=== PATIENT | female | born 1970 | race American Indian/Alaskan Native ===

== ENCOUNTER 2020-10-24 15:39 | Emergency (ER) | payer OTHER ==
[2020-10-24 15:52] VITALS: BP 115/68
[2020-10-24] MEDS ORDERED: NEOMY 3.5 MG/BACIT 400 UNITS/POLY B 5000 UNITS/GM OINT PACKET TP ONE (16:08)
[2020-10-24] MEDS ORDERED: IBUPROFEN 600 MG TAB PO ONE (16:08)
[2020-10-24] MEDS ORDERED: DIPHtheria,PERTUSSIS(ACELL),TETANUS VACCINE/PF 0.5 ML VIAL IM ONE (16:08)
--- NOTE | 2020-10-24 16:27 | Emergency Department Report ---
ED Fall HPI - General Chief Complaint: Fall Stated Complaint: FALL INJURY/PAIN Time Seen by Provider: 10/24/20 16:00 Source: patient Mode of arrival: Ambulatory - History of Present Illness Initial Comments: Patient is a 49-year-old female presents emergency room after a fall that occurred just prior to arrival. Patient states that she tripped over a crate which caused her to fall. She is complaining of right knee pain, left big toe pain, lower back pain, left thigh pain, she also has abrasions to her right knee. She denies ever injuring the past. She denies any loss of consciousness, neck pain, vision changes, vomiting, numbness, weakness, bowel or bladder incontinence, any other injury. She is unsure of her last tetanus immunization. Past medical history of hypertension. No allergies to medications. She is postmenopausal. - Related Data Previous Rx's Medication Instructions Recorded Last Taken Type Cephalexin [Keflex] 500 mg PO TID #21 capsule 01/04/14 Unknown Rx Ferrous Sulfate [Feosol 325 MG tab] 325 mg PO TID #90 tablet 05/22/14 Unknown Rx Cyclobenzaprine HCl [Flexeril 5mg] 5 mg PO TID PRN #15 tablet 02/10/15 Unknown Rx HYDROcodone/APAP 5-325 [[place] 1 each PO Q6HR PRN #20 tablet 04/29/15 Unknown Rx 5-325 mg TAB] amLODIPine 5 mg PO DAILY #30 tab 02/10/16 Unknown Rx Naproxen [Naprosyn TAB] 500 mg PO BID PRN #20 tablet 10/24/20 Unknown Rx Allergies Allergy/AdvReac Type Severity Reaction Status Date / Time No Known Allergies Allergy Verified 02/10/16 18:36 ED Review of Systems ROS: Stated complaint: FALL INJURY/PAIN Other details as noted in HPI Comment: All other systems reviewed and negative ED Past Medical Hx - Past Medical History Previous Medical History?: Yes Hx Hypertension: Yes - Surgical History Past Surgical History?: Yes Additional Surgical History: 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 - Social History Smoking Status: Never Smoker Substance Use Type: Alcohol - Medications Home Medications: Home Medications Medication Instructions Recorded Confirmed Last Taken Type Cephalexin [Keflex] 500 mg PO TID #21 capsule 01/04/14 Unknown Rx Ferrous Sulfate [Feosol 325 MG tab] 325 mg PO TID #90 tablet 05/22/14 Unknown Rx Cyclobenzaprine HCl [Flexeril 5mg] 5 mg PO TID PRN #15 tablet 02/10/15 Unknown Rx HYDROcodone/APAP 5-325 [[place] 1 each PO Q6HR PRN #20 tablet 04/29/15 Unknown Rx 5-325 mg TAB] amLODIPine 5 mg PO DAILY #30 tab 02/10/16 Unknown Rx Naproxen [Naprosyn TAB] 500 mg PO BID PRN #20 tablet 10/24/20 Unknown Rx ED Physical Exam - General Limitations: No Limitations General appearance: alert, in no apparent distress - Head Head exam: Present: atraumatic, normocephalic - Eye Eye exam: Present: normal appearance - ENT ENT exam: Present: mucous membranes moist - Neck Neck exam: Present: normal inspection, full ROM. Absent: tenderness - Respiratory Respiratory exam: Present: normal lung sounds bilaterally. Absent: respiratory distress, wheezes, rales, rhonchi, stridor, chest wall tenderness, accessory muscle use, decreased breath sounds, prolonged expiratory - Cardiovascular Cardiovascular Exam: Present: regular rate, normal rhythm, normal heart sounds. Absent: systolic murmur, diastolic murmur, rubs, gallop - Extremities Exam Extremities exam: Present: other (ttp to the right anterior knee, there are two small 1 cm abrasions to the right knee region, FROM of the RLE, no deformity, mild ttp to the left big toe, ttp to the left lateral thigh with ecchymosis present, no deformities, FROM of the LLE, neurovascularly intact) - Back Exam Back exam: Present: normal inspection, full ROM, paraspinal tenderness (bilateral lumbar paraspinal muscular ttp, no midline C-spine, T-spine or L- spine ttp, no step offs, no deformities). Absent: vertebral tenderness - Neurological Exam Neurological exam: Present: alert, oriented X3, CN II-XII intact, normal gait. Absent: motor sensory deficit - Psychiatric Psychiatric exam: Present: normal affect, normal mood - Skin Skin exam: Present: warm, dry ED Course Vital Signs 10/24/20 10/24/20 10/24/20 15:48 17:33 17:46 Temperature 98.2 F Pulse Rate 69 Respiratory 18 18 20 Rate Blood Pressure 115/68 O2 Sat by Pulse 98 Oximetry ED Medical Decision Making - Radiology Data Radiology results: report reviewed Ordering Physician: WALESKA RIVERA Date of Service: 10/24/20 Procedure(s): XR toe(s) 2+V LT Accession Number(s): [id number] cc: WALESKA RIVERA Fluoro Time In Minutes: LEFT TOE(S) 3 VIEW(S) INDICATION / CLINICAL INFORMATION: fall, left big toe pain COMPARISON: None available. FINDINGS: BONES / JOINT(S): No acute fracture or subluxation. 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 SOFT TISSUES: No significant abnormality. ADDITIONAL FINDINGS: None. Signer Name: Daisy Rosario MD Signed: 10/24/2020 4:52 PM Workstation Name: [id number] Transcribed By: Dictated By: DAISY ROSARIO Electronically Authenticated By: DAISY ROSARIO Signed Date/Time: 10/24/201651 DD/ 50 TD/TT: Ordering Physician: WALESKA RIVERA Date of Service: 10/24/20 Procedure(s): XR knee 3V RT Accession Number(s): [id number] cc: WALESKA RIVERA Fluoro Time In Minutes: RIGHT KNEE 3 VIEW(S) INDICATION / CLINICAL INFORMATION: fall, right knee pain COMPARISON: None available. FINDINGS: BONES / JOINT(S): No acute fracture or subluxation. There is superior patellar enthesopathy. SOFT TISSUES: No significant abnormality. ADDITIONAL FINDINGS: None. Signer Name: Daisy Rosario MD Signed: 10/24/2020 4:53 PM Workstation Name: [id number] Transcribed By: Dictated By: DAISY ROSARIO Electronically Authenticated By: DAISY ROSARIO Signed Date/Time: 10/24/201652 DD/ 52 TD/TT: Ordering Physician: WALESKA RIVERA Date of Service: 10/24/20 Procedure(s): XR femur 2+V LT Accession Number(s): [id number] cc: WALESKA RIVERA Fluoro Time In Minutes: LEFT FEMUR 4 VIEW(S) INDICATION / CLINICAL INFORMATION: fall, left thigh pain COMPARISON: None available. FINDINGS: BONES / JOINT(S): No acute fracture or subluxation. No significant arthritis. SOFT TISSUES: No significant abnormality. ADDITIONAL FINDINGS: None. Signer Name: Daisy Rosario MD Signed: 10/24/2020 4:54 PM Workstation Name: [id number] Transcribed By: SS Dictated By: DAISY ROSARIO Electronically Authenticated By: DAISY ROSARIO Signed Date/Time: 10/24/201653 DD/ 52 TD/TT: Ordering Physician: WALESKA RIVERA Date of Service: 10/24/20 Procedure(s): XR spine lumbosacral 2-3V Accession Number(s): [id number] cc: WALESKA RIVERA Fluoro Time In Minutes: LUMBAR SPINE 3 VIEWS INDICATION / CLINICAL INFORMATION: fall, lower back pain. COMPARISON: None available. FINDINGS: VERTEBRAE: No acute fracture. No significant malalignment. DISC SPACES / FACET JOINTS:Mild multilevel degenerative spondylosis. PARASPINAL SOFT TISSUES:No significant abnormality. ADDITIONAL FINDINGS: None. Signer Name: Daisy Rosario MD Signed: 10/24/2020 4:52 PM Workstation Name: [id number] Transcribed By: Dictated By: DAISY ROSARIO Electronically Authenticated By: DAISY ROSARIO Signed Date/Time: 10/24/201651 DD/ 51 TD/TT: - Medical Decision Making Patient is a 49-year-old female presents emergency room after a fall that occurred just prior to arrival. Patient states that she tripped over a crate which caused her to fall. She is complaining of right knee pain, left big toe pain, lower back pain, left thigh pain, she also has abrasions to her right knee. She denies ever injuring the past. She denies any loss of consciousness, neck pain, vision changes, vomiting, numbness, weakness, bowel or bladder incontinence, any other injury. She is unsure of her last tetanus immunization. Past medical history of hypertension. No allergies to medications. She is postmenopausal. Vitals are normal. On exam: ttp to the right anterior knee, there are two small 1 cm abrasions to the right knee region, FROM of the RLE, no deformity, mild ttp to the left big toe, ttp to the left lateral thigh with ecchymosis present, no deformities, FROM of the LLE, neurovascularly intact, bilateral lumbar paraspinal muscular ttp, no midline C-spine, T-spine or L-spine ttp, no step offs, no deformities, no focal neuro deficits. All x-rays are within normal limits. Discussed all results with patient answered questions. Wound care performed by nurse. Patient given ibuprofen and Tdap while in the emergency department. Patient given prescription for naproxen. Advised patient Please take medication as prescribed. Please keep area on the knee clean, dry, covered, wash with antibacterial soap and water twice a day and pat dry, use tr iple antibiotic or Neosporin ointment. May use ice for 15 minutes at a time, rest, elevation of the legs. Follow-up with your primary care doctor for reexamination. Return to emergency room for new or symptoms. - Differential Diagnosis Strain, sprain, fracture, dislocation, contusion, abrasion Critical care attestation.: If time is entered above; I have spent that time in minutes in the direct care of this critically ill patient, excluding procedure time. ED Disposition Clinical Impression: Toe pain, left, Left thigh pain, Abrasion, right knee, initial encounter Fall Qualifiers: Encounter type: initial encounter Qualified Code(s): W19.XXXA - Unspecified fall, initial encounter Right knee pain Qualifiers: Chronicity: acute Qualified Code(s): M25.561 - Pain in right knee Lumbar strain Qualifiers: Encounter type: initial encounter Qualified Code(s): S39.012A - Strain of muscle, fascia and tendon of lower back, initial encounter Disposition: TO HOME OR SELFCARE Is pt being admited?: No Does the pt Need Aspirin: No Condition: Stable Instructions: Abrasion, Musculoskeletal Pain Additional Instructions: Please take medication as prescribed. Please keep area on the knee clean, dry, covered, wash with antibacterial soap and water twice a day and pat dry, use triple antibiotic or Neosporin ointment. May use ice for 15 minutes at a time, rest, elevation of the legs. Follow-up with your primary care doctor for reexamination. Return to emergency room for new or symptoms. Prescriptions: Naproxen [Naprosyn TAB] 500 mg PO BID PRN #20 tablet PRN Reason: Pain Referrals: [facility] [Other] - 2-3 Days Forms: Work/School Release Form(ED) Time of Disposition: 17:09 Print Language: LATVIAN
--- NOTE | 2020-10-24 16:56 | XRay Report ---
LEFT TOE(S) 3 VIEW(S) INDICATION / CLINICAL INFORMATION: fall, left big toe pain COMPARISON: None available. FINDINGS: BONES / JOINT(S): No acute fracture or subluxation. 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 SOFT TISSUES: No significant abnormality. ADDITIONAL FINDINGS: None. Signer Name: Walter Rosario MD Signed: 10/24/2020 4:52 PM Workstation Name: [id number]
--- NOTE | 2020-10-24 16:57 | XRay Report ---
LUMBAR SPINE 3 VIEWS INDICATION / CLINICAL INFORMATION: fall, lower back pain. COMPARISON: None available. FINDINGS: VERTEBRAE: No acute fracture. No significant malalignment. DISC SPACES / FACET JOINTS:Mild multilevel degenerative spondylosis. PARASPINAL SOFT TISSUES:No significant abnormality. ADDITIONAL FINDINGS: None. Signer Name: Walter Rosario MD Signed: 10/24/2020 4:52 PM Workstation Name: [id number]
--- NOTE | 2020-10-24 16:58 | XRay Report ---
LEFT FEMUR 4 VIEW(S) INDICATION / CLINICAL INFORMATION: fall, left thigh pain COMPARISON: None available. FINDINGS: BONES / JOINT(S): No acute fracture or subluxation. No significant arthritis. SOFT TISSUES: No significant abnormality. ADDITIONAL FINDINGS: None. Signer Name: Walter Rosario MD Signed: 10/24/2020 4:54 PM Workstation Name: [id number]
--- NOTE | 2020-10-24 16:58 | XRay Report ---
RIGHT KNEE 3 VIEW(S) INDICATION / CLINICAL INFORMATION: fall, right knee pain COMPARISON: None available. FINDINGS: BONES / JOINT(S): No acute fracture or subluxation. There is superior patellar enthesopathy. SOFT TISSUES: No significant abnormality. ADDITIONAL FINDINGS: None. Signer Name: Walter Rosario MD Signed: 10/24/2020 4:53 PM Workstation Name: [email or web address]
== END 2020-10-24 17:46 | disposition home or self-care (01) ==
LOC: ED 15:39
DX: S80.211A Abrasion, right knee, initial encounter (principal); M79.675 Pain in left toe(s); S39.012A Strain of muscle, fascia and tendon of lower back, initial encounter; I10 Essential (primary) hypertension; Z79.899 Other long term (current) drug therapy; W01.0XXA Fall on same level from slipping, tripping and stumbling without subsequent striking against object, initial encounter; Y93.89 Activity, other specified; Y92.89 Other specified places as the place of occurrence of the external cause; Y99.8 Other external cause status
CPT/HCPCS: 72100; 73552; 73562; 73660; 90471; 90715; 99283; A6250

== ENCOUNTER 2021-05-08 11:42 | Emergency (ER) | payer OTHER ==
[2021-05-08 11:54] VITALS: BP 119/79
== END 2021-05-08 15:40 | disposition home or self-care (01) ==
LOC: ED 11:42
DX: S39.012A Strain of muscle, fascia and tendon of lower back, initial encounter (principal); S50.00XA Contusion of unspecified elbow, initial encounter; S70.00XA Contusion of unspecified hip, initial encounter; S06.9X9A Unspecified intracranial injury with loss of consciousness of unspecified duration, initial encounter; I10 Essential (primary) hypertension; Z79.899 Other long term (current) drug therapy; Z98.890 Other specified postprocedural states; V49.49XA Driver injured in collision with other motor vehicles in traffic accident, initial encounter; Y92.410 Unspecified street and highway as the place of occurrence of the external cause; Y93.89 Activity, other specified; Y99.8 Other external cause status
CPT/HCPCS: 70450; 72100; 72125

== ENCOUNTER 2022-03-03 21:20 | Emergency (ER) | payer OTHER ==
[2022-03-03] MEDS ORDERED: oxyCODONE /ACETAMINOPHEN 5-325MG TAB PO ONE (21:36)
--- NOTE | 2022-03-03 21:37 | Emergency Department Report ---
<YENNIFER LEE - Last Filed: 03/04/22 05:59> ED General Adult HPI - General Chief complaint: Animal Bite Stated complaint: BITE BY SNAKE PUI?: No Time Seen by Provider: 03/03/22 21:32 Source: patient, RN notes reviewed Mode of arrival: Ambulatory Limitations: No Limitations - History of Present Illness Initial comments: The patient was evaluated in the emergency department for symptoms described in the history of present illness. He/she was evaluated in the context of the global COVID-19 pandemic, which necessitated consideration that the patient might be at risk for infection with the virus that causes COVID-19. Institutional protocols and algorithms that pertain to the evaluation of patie nts at risk for COVID-19 are in a state of rapid change based on information released by regulatory bodies including the CDC and federal and state organizations. These policies and algorithms were followed during the patient's care in the emergency department. Please note that these policies, procedures and recommendations changed on a rapid basis. This is a 51-year-old female who states that she is not , with a past medical history of hypertension, who presents to the emergency room today with a complaint of snake bite to the medial dorsal aspect of her right foot, which happened approximately 10 to 15 minutes prior to ER arrival. She believes that it was a small or perhaps baby snake, with brown and white markings. She denies additional injuries and complaints. No redness, pus, streaking, weakness, numbness or bleeding. Prior to the reported bite, the patient reports that she is in her usual state of health. Reports only one bite, and no additional injuries. No additional complaints -: Sudden, minutes(s) Location: right, lower extremity Quality: aching Consistency: constant Improves with: rest Worsens with: movement Associated Symptoms: denies other symptoms - Related Data Previous Rx's Medication Instructions Recorded Last Taken Type Ferrous Sulfate [Feosol 325 MG tab] 325 mg PO TID #90 tablet 05/22/14 Unknown Rx amLODIPine 5 mg PO DAILY #30 tab 02/10/16 Unknown Rx Acetaminophen [Acetaminophen 8 650 mg PO Q8HR #30 tablet.er 05/08/21 Unknown Rx Hour] Acetaminophen [Non-Aspirin Extra 500 mg PO Q6HR PRN #30 tablet 03/04/22 Unknown Rx Strength] Morphine Sulfate [Morphine Sulfate 7.5 mg PO Q6HR PRN #12 tablet 03/04/22 Unknown Rx IR] cephALEXin [Keflex] 500 mg PO Q6HR #28 capsule 03/04/22 Unknown Rx Allergies Allergy/AdvReac Type Severity Reaction Status Date / Time No Known Allergies Allergy Verified 02/10/16 18:36 ED Review of Systems Comment: All other systems reviewed and negative Musculoskeletal: myalgia ED Past Medical Hx - Past Medical History Hx Hypertension: Yes - Surgical History Additional Surgical History: 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 - Social History Smoking Status: Never Smoker Substance Use Type: Alcohol - Medications Home Medications: Home Medications Medication Instructions Recorded Confirmed Last Taken Type Ferrous Sulfate [Feosol 325 MG tab] 325 mg PO TID #90 tablet 05/22/14 Unknown Rx amLODIPine 5 mg PO DAILY #30 tab 02/10/16 Unknown Rx Acetaminophen [Acetaminophen 8 650 mg PO Q8HR #30 tablet.er 05/08/21 Unknown Rx Hour] Acetaminophen [Non-Aspirin Extra 500 mg PO Q6HR PRN #30 tablet 03/04/22 Unknown Rx Strength] Morphine Sulfate [Morphine Sulfate 7.5 mg PO Q6HR PRN #12 tablet 03/04/22 Unknown Rx IR] cephALEXin [Keflex] 500 mg PO Q6HR #28 capsule 03/04/22 Unknown Rx ED Physical Exam - General Limitations: No Limitations General appearance: alert, in no apparent distress - Head Head exam: Present: atraumatic, normocephalic - Eye Eye exam: Present: normal appearance, EOMI. Absent: nystagmus - ENT ENT exam: Present: normal exam, normal orophraynx, mucous membranes moist, normal external ear exam - Neck Neck exam: Present: normal inspection, full ROM. Absent: tenderness, meningismus - Respiratory Respiratory exam: Present: normal lung sounds bilaterally. Absent: respiratory distress, wheezes, rales, rhonchi, stridor, decreased breath sounds - Cardiovascular Cardiovascular Exam: Present: regular rate, normal rhythm, normal heart sounds. Absent: bradycardia, tachycardia, irregular rhythm, systolic murmur, diastolic murmur, rubs, gallop - GI/Abdominal GI/Abdominal exam: Present: soft. Absent: distended, tenderness, guarding, rebound, rigid, pulsatile mass - Extremities Exam Extremities exam: Present: full ROM, tenderness (Point tenderness noted to be bite site on the right foot.), other (2+ pulses noted in the bilateral upper and lower extremities. There is no palpable cord. negative Homans sign. Muscular compartments are soft. The pelvis is stable.). Absent: normal inspection (There is minimal circumferential swelling approximately 2 cm x 2 cm on the dorsal medial aspect of the right foot. There is no pus, streaking, ecchymosis. The muscular compartments are soft. No foreign bodies are noted), pedal edema, calf tenderness - Back Exam Back exam: Present: normal inspection, full ROM. Absent: paraspinal tenderness, vertebral tenderness - Neurological Exam Neurological exam: Present: alert, oriented X3, other (No facial droop. Tongue midline. Extraocular movements intact bilaterally. Facial sensation intact to light touch in V1, V2, V3 distribution bilaterally. 5 and a 5 strength in 4 extremities. Sensation intact to light touch in 4 extremities.). Absent: motor sensory deficit - Psychiatric Psychiatric exam: Present: anxious - Skin Skin exam: Present: warm, dry, intact, normal color. Absent: rash ED Course - Reevaluation(s) Reevaluation #1: 03/03/22 22:13 Differential diagnosis, including not limited to: Animal bite to right foot. Assessment and plan: 51-year-old female, who is afebrile, with reassuring vital signs, who is neurovascularly intact, presenting to the department with a complaint of snake bites to the right medial dorsal foot. There is minimal swelling. There is no redness, pus, streaking, ecchymosis. The patient is neurovascularly intact. Her x-ray is unremarkable. Have requested that nursing team wash right foot with soap and water. Give Percocet for pain, and obtain appropriate laboratory studies. Administer tetanus vaccination. Perform serial neurovascular exams, and discussed with Poison Control Center once initial laboratory studies have resulted. Discussed this with the patient. 03/04/22 00:01 Laboratory studies are unremarkable. X-ray is unremarkable. Multiple repeat pulse exams obtained. She remains neurovascularly intact. Swelling has slightly increased, however, muscular compartments are soft, and there is no redness, pus or streaking. As per recommendations from poison control center: spoke with Toni at [place] [facility] measure q15m x 2 then q30 min, repeat labs and coags in 6 hours, no NSAIDS, opiates pain treatment of choice, NO ice, elevate no more than 2" above the heart, EKG if needed, monitor for 12h then pt can follow up with poison control at home if necessary Discussed this with the patient. She is agreeable to this plan of care. 03/04/22 01:31 The patient is reexamined. Pulses are present. Swelling appears stabilized. It has not increased.. No redness, pus or streaking. She declines pain medication. She is in no acute distress. Exam is unchanged from prior. 03/04/22 05:10 Repeat examination is essentially unchanged. Pulses are present. Swelling appears to be slightly more prominent. Having recurrent pain. Additional pain medication ordered laboratory studies are essentially unchanged. 03/04/22 05:50 I discussed the patient's repeat history, physical, repeat laboratory studies and clinical impression with Yudith the [place] [facility]. No indication for antivenom. May discharge at the end of observation. No compresses. Elevate extremity. Poison Control Center advises that pain, swe lling may persist for 2 to 3 weeks Care will be transferred to the oncoming ER physician, Dr. Wilian Becerra, to follow-up on repeat physical and neurovascular exams, and if essentially unchanged, discharge at 915 this morning 03/04/22 05:59 ED Medical Decision Making - Lab Data Result diagrams: 03/04/22 03:45 03/04/22 03:45 Vital Signs 03/03/22 21:22 Temperature 98.6 F Pulse Rate 84 Respiratory 18 Rate Blood Pressure 140/117 O2 Sat by Pulse 99 Oximetry Lab Results 03/03/22 03/03/22 03/03/22 Range/Units 21:53 21:53 21:53 WBC (4.5-11.0) K/mm3 RBC (3.65-5.03) M/mm3 Hgb (10.1-14.3) gm/dl Hct (30.3-42.9) % MCV (79-97) fl MCH (28-32) pg MCHC (30-34) % RDW (13.2-15.2) % Plt Count (140-440) K/mm3 Lymph % (Auto) (13.4-35.0) % Montgomery % (Auto) (0.0-7.3) % Eos % (Auto) (0.0-4.3) % Baso % (Auto) (0.0-1.8) % Lymph # (Auto) (1.2-5.4) K/mm3 Montgomery # (Auto) (0.0-0.8) K/mm3 Eos # (Auto) (0.0-0.4) K/mm3 Baso # (Auto) (0.0-0.1) K/mm3 Seg Neutrophils % (40.0-70.0) % Seg Neutrophils # (1.8-7.7) K/mm3 PT 13.1 (12.2-14.9) Sec. INR 0.90 (0.87-1.13) APTT 27.4 (24.2-36.6) Sec. Sodium 141 (137-145) mmol/L Potassium 3.7 (3.6-5.0) mmol/L Chloride 104.9 (98-107) mmol/L Carbon Dioxide 21 L (22-30) mmol/L Anion Gap 19 mmol/L BUN 19 H (7-17) mg/dL Creatinine 1.0 (0.6-1.2) mg/dL Estimated GFR > 60 ml/min BUN/Creatinine Ratio 19 % Glucose 104 H (65-100) mg/dL Calcium 9.4 (8.4-10.2) mg/dL Total Bilirubin 0.30 (0.1-1.2) mg/dL AST 26 (5-40) units/L ALT 19 (7-56) units/L Alkaline Phosphatase 94 (35-129) units/L Total Creatine Kinase 112 (30-135) units/L Total Protein 7.5 (6.3-8.2) g/dL Albumin 4.6 (3.9-5) g/dL Albumin/Globulin Ratio 1.6 % Lipase (13-60) units/L HCG, Quant 0.836 (0-4) mIU/mL 03/03/22 03/03/22 Range/Units 21:53 21:53 WBC 6.0 (4.5-11.0) K/mm3 RBC 4.46 (3.65-5.03) M/mm3 Hgb 12.4 (10.1-14.3) gm/dl Hct 36.6 (30.3-42.9) % MCV 82 (79-97) fl MCH 28 (28-32) pg MCHC 34 (30-34) % RDW 13.4 (13.2-15.2) % Plt Count 257 (140-440) K/mm3 Lymph % (Auto) 42.9 H (13.4-35.0) % Montgomery % (Auto) 10.3 H (0.0-7.3) % Eos % (Auto) 4.5 H (0.0-4.3) % Baso % (Auto) 0.8 (0.0-1.8) % Lymph # (Auto) 2.6 (1.2-5.4) K/mm3 Montgomery # (Auto) 0.6 (0.0-0.8) K/mm3 Eos # (Auto) 0.3 (0.0-0.4) K/mm3 Baso # (Auto) 0.1 (0.0-0.1) K/mm3 Seg Neutrophils % 41.5 (40.0-70.0) % Seg Neutrophils # 2.5 (1.8-7.7) K/mm3 PT (12.2-14.9) Sec. INR (0.87-1.13) APTT (24.2-36.6) Sec. Sodium (137-145) mmol/L Potassium (3.6-5.0) mmol/L Chloride (98-107) mmol/L Carbon Dioxide (22-30) mmol/L Anion Gap mmol/L BUN (7-17) mg/dL Creatinine (0.6-1.2) mg/dL Estimated GFR ml/min BUN/Creatinine Ratio % Glucose (65-100) mg/dL Calcium (8.4-10.2) mg/dL Total Bilirubin (0.1-1.2) mg/dL AST (5-40) units/L ALT (7-56) units/L Alkaline Phosphatase (35-129) units/L Total Creatine Kinase (30-135) units/L Total Protein (6.3-8.2) g/dL Albumin (3.9-5) g/dL Albumin/Globulin Ratio % Lipase 42 (13-60) units/L HCG, Quant (0-4) mIU/mL Lab Results 03/03/22 03/03/22 03/03/22 Range/Units 21:53 21:53 21:53 WBC (4.5-11.0) K/mm3 RBC (3.65-5.03) M/mm3 Hgb (10.1-14.3) gm/dl Hct (30.3-42.9) % MCV (79-97) fl MCH (28-32) pg MCHC (30-34) % RDW (13.2-15.2) % Plt Count (140-440) K/mm3 Lymph % (Auto) (13.4-35.0) % Montgomery % (Auto) (0.0-7.3) % Eos % (Auto) (0.0-4.3) % Baso % (Auto) (0.0-1.8) % Lymph # (Auto) (1.2-5.4) K/mm3 Montgomery # (Auto) (0.0-0.8) K/mm3 Eos # (Auto) (0.0-0.4) K/mm3 Baso # (Auto) (0.0-0.1) K/mm3 Seg Neutrophils % (40.0-70.0) % Seg Neutrophils # (1.8-7.7) K/mm3 PT 13.1 (12.2-14.9) Sec. INR 0.90 (0.87-1.13) APTT 27.4 (24.2-36.6) Sec. Sodium 141 (137-145) mmol/L Potassium 3.7 (3.6-5.0) mmol/L Chloride 104.9 (98-107) mmol/L Carbon Dioxide 21 L (22-30) mmol/L Anion Gap 19 mmol/L BUN 19 H (7-17) mg/dL Creatinine 1.0 (0.6-1.2) mg/dL Estimated GFR > 60 ml/min BUN/Creatinine Ratio 19 % Glucose 104 H (65-100) mg/dL Calcium 9.4 (8.4-10.2) mg/dL Total Bilirubin 0.30 (0.1-1.2) mg/dL AST 26 (5-40) units/L ALT 19 (7-56) units/L Alkaline Phosphatase 94 (35-129) units/L Total Creatine Kinase 112 (30-135) units/L Total Protein 7.5 (6.3-8.2) g/dL Albumin 4.6 (3.9-5) g/dL Albumin/Globulin Ratio 1.6 % Lipase (13-60) units/L HCG, Quant 0.836 (0-4) mIU/mL 03/03/22 03/03/22 03/04/22 Range/Units 21:53 21:53 03:45 WBC 6.0 6.2 (4.5-11.0) K/mm3 RBC 4.46 4.33 (3.65-5.03) M/mm3 Hgb 12.4 12.2 (10.1-14.3) gm/dl Hct 36.6 35.2 (30.3-42.9) % MCV 82 81 (79-97) fl MCH 28 28 (28-32) pg MCHC 34 35 H (30-34) % RDW 13.4 12.9 L (13.2-15.2) % Plt Count 257 245 (140-440) K/mm3 Lymph % (Auto) 42.9 H 45.4 H (13.4-35.0) % Montgomery % (Auto) 10.3 H 7.8 H (0.0-7.3) % Eos % (Auto) 4.5 H 4.3 (0.0-4.3) % Baso % (Auto) 0.8 1.1 (0.0-1.8) % Lymph # (Auto) 2.6 2.8 (1.2-5.4) K/mm3 Montgomery # (Auto) 0.6 0.5 (0.0-0.8) K/mm3 Eos # (Auto) 0.3 0.3 (0.0-0.4) K/mm3 Baso # (Auto) 0.1 0.1 (0.0-0.1) K/mm3 Seg Neutrophils % 41.5 41.4 (40.0-70.0) % Seg Neutrophils # 2.5 2.6 (1.8-7.7) K/mm3 PT (12.2-14.9) Sec. INR (0.87-1.13) APTT (24.2-36.6) Sec. Sodium (137-145) mmol/L Potassium (3.6-5.0) mmol/L Chloride (98-107) mmol/L Carbon Dioxide (22-30) mmol/L Anion Gap mmol/L BUN (7-17) mg/dL Creatinine (0.6-1.2) mg/dL Estimated GFR ml/min BUN/Creatinine Ratio % Glucose (65-100) mg/dL Calcium (8.4-10.2) mg/dL Total Bilirubin (0.1-1.2) mg/dL AST (5-40) units/L ALT (7-56) units/L Alkaline Phosphatase (35-129) units/L Total Creatine Kinase (30-135) units/L Total Protein (6.3-8.2) g/dL Albumin (3.9-5) g/dL Albumin/Globulin Ratio % Lipase 42 (13-60) units/L HCG, Quant (0-4) mIU/mL 03/04/22 03/04/22 Range/Units 03:45 03:45 WBC (4.5-11.0) K/mm3 RBC (3.65-5.03) M/mm3 Hgb (10.1-14.3) gm/dl Hct (30.3-42.9) % MCV (79-97) fl MCH (28-32) pg MCHC (30-34) % RDW (13.2-15.2) % Plt Count (140-440) K/mm3 Lymph % (Auto) (13.4-35.0) % Montgomery % (Auto) (0.0-7.3) % Eos % (Auto) (0.0-4.3) % Baso % (Auto) (0.0-1.8) % Lymph # (Auto) (1.2-5.4) K/mm3 Montgomery # (Auto) (0.0-0.8) K/mm3 Eos # (Auto) (0.0-0.4) K/mm3 Baso # (Auto) (0.0-0.1) K/mm3 Seg Neutrophils % (40.0-70.0) % Seg Neutrophils # (1.8-7.7) K/mm3 PT 13.2 (12.2-14.9) Sec. INR 0.91 (0.87-1.13) APTT 27.0 (24.2-36.6) Sec. Sodium 139 (137-145) mmol/L Potassium 3.4 L (3.6-5.0) mmol/L Chloride 104.3 (98-107) mmol/L Carbon Dioxide 24 (22-30) mmol/L Anion Gap 14 mmol/L BUN 17 (7-17) mg/dL Creatinine 0.8 (0.6-1.2) mg/dL Estimated GFR > 60 ml/min BUN/Creatinine Ratio 21 % Glucose 97 (65-100) mg/dL Calcium 9.0 (8.4-10.2) mg/dL Total Bilirubin 0.30 (0.1-1.2) mg/dL AST 21 (5-40) units/L ALT 19 (7-56) units/L Alkaline Phosphatase 85 (35-129) units/L Total Creatine Kinase (30-135) units/L Total Protein 7.4 (6.3-8.2) g/dL Albumin 4.5 (3.9-5) g/dL Albumin/Globulin Ratio 1.6 % Lipase (13-60) units/L HCG, Quant (0-4) mIU/mL - Radiology Data Radiology results: pending, report reviewed, image reviewed RIGHT FOOT 3 VIEWS INDICATION / CLINICAL INFORMATION: right foot pain snake bite COMPARISON: None available. FINDINGS: BONES and JOINT(S): No acute fracture or subluxation. No significant arthritis. SOFT TISSUES: Mild edema is seen medially along the mid foot. No soft tissue defect or other significant abnormality. ADDITIONAL FINDINGS: None. IMPRESSION: 1. Mild right foot edema without other acute findings. Signer Name: Ruddy Maddox MD Signed: 03/03/2022 9:01 PM Workstation Name: [id number] ED Disposition Clinical Impression: Snake bite Disposition: 01 HOME / SELF CARE / HOMELESS Is pt being admited?: No Does the pt Need Aspirin: No Condition: Good Instructions: Snake Bite Additional Instructions: It is very important to realize that pain and swelling in the right foot may persist for up to 2 to 3 weeks. Please make certain to keep the extremity elevated Rest, avoid heavy lifting and strenuous physical activities. Wear loosefitting clothing, and keep the right foot elevated. it is vert important to keep the leg elevated please note that symptoms may persist for up to 2 to 3 weeks Please take the prescribed pain medications as needed and directed. Please follow-up with a primary care doctor within the next 3 to 5 days. Please return to the emergency room right away with new pain, worsened pain, migration of pain, projectile vomiting, change in mental status, confusion, inability tolerate liquid feeds, new, worsened or different symptoms not present on the initial emergency room evaluation When you taking the morphine sulfate, do not drive, consume alcohol, or make important decisions. Exercise caution because this medication can be habit- forming Patient may consume foods that are high in potassium, such as banana, avocado, potato. Please return to the emergency room right away with new pain, worsened pain, migration of pain, projectile vomiting, change in mental status, confusion, inability tolerate liquid feeds, new, worsened or different symptoms not present on the initial emergency room evaluation Prescriptions: cephALEXin [Keflex] 500 mg PO Q6HR #28 capsule Morphine Sulfate [Morphine Sulfate IR] 7.5 mg PO Q6HR PRN #12 tablet PRN Reason: Pain , Severe (7-10) Acetaminophen [Non-Aspirin Extra Strength] 500 mg PO Q6HR PRN #30 tablet PRN Reason: Pain , Severe (7-10) Referrals: [facility] [Other] - 3-5 Days [facility] [Provider Group] - 3-5 Days Forms: Work/School Release Form(ED) <RACHAEL BECERRA - Last Filed: 03/04/22 09:23> ED Review of Systems ROS: Stated complaint: BITE BY SNAKE Other details as noted in HPI ED Course Vital Signs 03/03/22 03/04/22 03/04/22 21:22 00:08 05:02 Temperature 98.6 F 98.2 F Pulse Rate 84 60 Respiratory 18 Rate Blood Pressure 140/117 Blood Pressure 118/68 [Left] O2 Sat by Pulse 99 100 Oximetry - Reevaluation(s) Reevaluation #1: 03/04/22 09:21 There has been no increased swelling beyond the demarcated region. Patient will be discharged. Will add prescription for antibiotics ED Medical Decision Making - Lab Data Result diagrams: 03/04/22 03:45 03/04/22 03:45 Critical care attestation.: If time is entered above; I have spent that time in minutes in the direct care of this critically ill patient, excluding procedure time. ED Disposition Is pt being admited?: No Does the pt Need Aspirin: No Time of Disposition: 09:23
--- NOTE | 2022-03-03 22:05 | XRay Report ---
RIGHT FOOT 3 VIEWS INDICATION / CLINICAL INFORMATION: right foot pain snake bite COMPARISON: None available. FINDINGS: BONES and JOINT(S): No acute fracture or subluxation. No significant arthritis. SOFT TISSUES: Mild edema is seen medially along the mid foot. No soft tissue defect or other signific ant abnormality. ADDITIONAL FINDINGS: None. IMPRESSION: 1. Mild right foot edema without other acute findings. Signer Name: Ruddy Maddox MD Signed: 03/03/2022 10:01 PM Workstation Name: [id number]
[2022-03-03 22:15] LABS: Basophils # (Auto) 0.1 K/mm3 (0.0-0.1); Basophils % (Auto) 0.8 % (0.0-1.8); Eosinophils # (Auto) 0.3 K/mm3 (0.0-0.4); Eosinophils % (Auto) 4.5 % (0.0-4.3); Hematocrit 36.6 % (30.3-42.9); Hemoglobin 12.4 gm/dl (10.1-14.3); Lymphocytes # (Auto) 2.6 K/mm3 (1.2-5.4); Lymphocytes % (Auto) 42.9 % (13.4-35.0); Mean Corpuscular HGB Conc 34 % (30-34); Mean Corpuscular Volume 82 fl (79-97); Monocytes # (Auto) 0.6 K/mm3 (0.0-0.8); Monocytes % (Auto) 10.3 % (0.0-7.3); Platelet Count 257 K/mm3 (140-440); Red Blood Count 4.46 M/mm3 (3.65-5.03); Red Cell Distribution Width 13.4 % (13.2-15.2)
[2022-03-03 22:24] LABS: INR 0.9 (0.87-1.13)
[2022-03-03 22:25] LABS: Partial Thromboplastin Time 27.4 Sec. (24.2-36.6)
[2022-03-03 22:54] LABS: Alanine Aminotransferase 19 units/L (7-56); Albumin 4.6 g/dL (3.9-5); BUN/Creatinine Ratio 19; Blood Urea Nitrogen 19 mg/dL (7-17); Calcium 9.4 mg/dL (8.4-10.2); Hemolysis Index 7
[2022-03-03] MEDS ORDERED: ONDANSETRON 4 MG ODT TAB PO PRN (23:59)
[2022-03-04] MEDS ORDERED: oxyCODONE /ACETAMINOPHEN 5-325MG TAB PO PRN
[2022-03-04 04:19] LABS: Basophils # (Auto) 0.1 K/mm3 (0.0-0.1); Basophils % (Auto) 1.1 % (0.0-1.8); Eosinophils # (Auto) 0.3 K/mm3 (0.0-0.4); Eosinophils % (Auto) 4.3 % (0.0-4.3); Hematocrit 35.2 % (30.3-42.9); Hemoglobin 12.2 gm/dl (10.1-14.3); Lymphocytes # (Auto) 2.8 K/mm3 (1.2-5.4); Lymphocytes % (Auto) 45.4 % (13.4-35.0); Mean Corpuscular HGB Conc 35 % (30-34); Mean Corpuscular Volume 81 fl (79-97); Monocytes # (Auto) 0.5 K/mm3 (0.0-0.8); Monocytes % (Auto) 7.8 % (0.0-7.3); Platelet Count 245 K/mm3 (140-440); Red Blood Count 4.33 M/mm3 (3.65-5.03); Red Cell Distribution Width 12.9 % (13.2-15.2)
[2022-03-04 04:28] LABS: Alanine Aminotransferase 19 units/L (7-56); Albumin 4.5 g/dL (3.9-5); BUN/Creatinine Ratio 21; Blood Urea Nitrogen 17 mg/dL (7-17); Hemolysis Index 5
[2022-03-04 04:30] LABS: INR 0.91 (0.87-1.13)
[2022-03-04] MEDS ORDERED: POTASSIUM CHLORIDE ER 20 MEQ TAB PO ONE (05:09)
[2022-03-04 09:46] VITALS: BP 113/74
== END 2022-03-04 09:50 | disposition home or self-care (01) ==
LOC: ED 21:20
DX: T63.001A Toxic effect of unspecified snake venom, accidental (unintentional), initial encounter (principal); I10 Essential (primary) hypertension; Z98.890 Other specified postprocedural states; Y92.89 Other specified places as the place of occurrence of the external cause
CPT/HCPCS: 36415; 80053; 82550; 83690; 84702; 85025; 85610; 85730; 99283